=== PATIENT | male | born 1960 | race Caucasian/White ===

== ENCOUNTER → 2017-08-13 | Outpatient (CLI) | payer OTHER ==
[2017-08-13 09:54] LABS: ALT 32 U/L (21-72); AST 20 U/L (17-59); Albumin 4.2 g/dL (3.5-5.0); Alkaline Phosphatase 73 U/L (38-126); Anion Gap 10 mmol/L; Blood Urea Nitrogen 11 mg/dL (9-20); Carbon Dioxide 27 mmol/L (22-30); Chloride 100 mmol/L (98-107); Cholesterol 211 mg/dL (<200); Glucose 213 mg/dL (74-99); HDL Cholesterol 30 mg/dL (40-60); Potassium 4.6 mmol/L (3.5-5.1); Sodium 137 mmol/L (137-145); Total Bilirubin 0.8 mg/dL (0.2-1.3); Total Protein 6.8 g/dL (6.3-8.2); Triglycerides 433 mg/dL (<150)
[2017-08-13 10:24] LABS: PSA Annual Screen 0.32 ng/mL (0.00-4.00)
== END | disposition home or self-care (01) ==
LOC: LABWHC1 08:48
PROVIDERS: ATTEND Internal Medicine
DX: R07.9 Chest pain, unspecified (principal); R03.0 Elevated blood-pressure reading, without diagnosis of hypertension; Z12.5 Encounter for screening for malignant neoplasm of prostate; Z29.9 Encounter for prophylactic measures, unspecified; Z83.3 Family history of diabetes mellitus
CPT/HCPCS: 80061; 80053; 93005; 36415; G0103

== ENCOUNTER → 2017-09-12 | Outpatient (CLI) | payer OTHER ==
[2017-09-12 21:10] LABS: Hemoglobin A1C 8.5 % (4.0-6.0)
== END | disposition home or self-care (01) ==
LOC: LABWHC1 14:37
PROVIDERS: ATTEND Internal Medicine
DX: R73.9 Hyperglycemia, unspecified (principal); E78.5 Hyperlipidemia, unspecified
CPT/HCPCS: 36415; 82043; 82570; 83036; 84443

== ENCOUNTER 2017-09-25 05:42 | Emergency (ER) | payer OTHER ==
[2017-09-25 06:01] VITALS: BP 133/76; PULSE 58; RESP 18; TEMP 99.1
[2017-09-25] MEDS ORDERED: SODIUM CHLORIDE 0.9% 1,000 ML IV STA ×2 (08:16)
[2017-09-25] MEDS ORDERED: CLINDAMYCIN 600 MG in DEXTROSE 5% IN WATER 50 ML IVPB STA ×2 (08:17)
--- NOTE | 2017-09-25 08:18 | ED ---
ENT HPI - General Chief complaint: Dental/Oral Stated complaint: dental pain Time Seen by Provider: 09/25/17 07:48 Source: patient, RN notes reviewed, old records reviewed Mode of arrival: ambulatory Limitations: no limitations - History of Present Illness Initial comments: This patient's a 56-year-old male with a history of pain and swelling to the left side of his face for 2 days. He reports that he started to have some swelling yesterday he was seenbe started on amoxicillin. He's had one day of the antibiotic. He reports he woke up today with severe swelling extending from the cheek up to his eye. Patient reports that he has no mandibular swelling or difficulty with swallowing or breathing. Patient states that he has not seen a dentist in quite some time. He does have significant decay on all of his teeth. Patient reports that he has not seen a dentist. Patient states that he's had recent diagnosis of type 2 diabetes and hypertension, he starts his medications on Saturday. - Related Data Previous Rx's Medication Instructions Recorded Clindamycin [Cleocin] 450 mg PO TID 10 Days capsule 09/25/17 Allergies Allergy/AdvReac Type Severity Reaction Status Date / Time No Known Allergies Allergy Verified 09/25/17 06:00 Review of Systems ROS Statement: Those systems with pertinent positive or pertinent negative responses have been documented in the HPI. ROS Other: All systems not noted in ROS Statement are negative. Past Medical History Past Medical History: No Reported History History of Any Multi-Drug Resistant Organisms: None Reported Additional Past Surgical History / Comment(s): Neck surgery Past Psychological History: No Psychological Hx Reported Smoking Status: Current every day smoker Past Alcohol Use History: None Reported Past Drug Use History: None Reported General Exam - General Exam Comments Initial Comments: 6-year-old male. Alert and oriented. No acute distress. Limitations: no limitations General appearance: alert, in no apparent distress Head exam: Present: atraumatic, normocephalic, normal inspection Eye exam: Present: normal appearance, PERRL, EOMI. Absent: scleral icterus, conjunctival injection, periorbital swelling ENT exam: Present: mucous membranes moist, other (Patient has extensive swelling from the left cheek extending up to the lower eyelid. The area is warm to touch. No palpable abscess with no swelling at this time.). Absent: normal oropharynx ( has significant decay through entire teeth. Tooth #15 is somewhat tender to palpation, multiple dental caries noted.) Neck exam: Present: normal inspection. Absent: tenderness, meningismus, lymphadenopathy Respiratory exam: Present: normal lung sounds bilaterally. Absent: respiratory distress, wheezes, rales, rhonchi, stridor Cardiovascular Exam: Present: regular rate, normal rhythm, normal heart sounds. Absent: systolic murmur, diastolic murmur, rubs, gallop, clicks Extremities exam: Present: normal inspection, full ROM, normal capillary refill. Absent: tenderness, pedal edema, joint swelling, calf tenderness Back exam: Present: normal inspection Neurological exam: Present: alert, oriented X3, CN II-XII intact Psychiatric exam: Present: normal affect, normal mood Course Vital Signs 09/25/17 05:57 Temperature 99.1 F Pulse Rate 58 L Respiratory 18 Rate Blood Pressure 133/76 O2 Sat by Pulse 96 Oximetry Medical Decision Making - Medical Decision Making 56-year-old male presents emergency department today with chief complaint of left-sided facial swelling. Started 2 days ago. Started on amoxicillin for PCP. He reports a swelling feeling worse. He does have a low-grade temperature today 99.8. Patient has no pain with extra ocular movements. No trismus. No tenderness of the mandible or the soft tissue areas of the neck. Patient has extensive swelling from the left cheek extending to the lower left eyelid. Patient is a recent diagnosis of type II diabetic. Patient received IV fluids and lab work was obtained. White blood cell count within normal limits. CT of the facial bones was completed. No evidence of focal abscess at this time. Likely cellulitis at this time. I will change the Patient to clindamycin. Given referral for dental clinic. Discussed PCP follow-up and ENT follow-up. Return parameters were discussed. - Lab Data Result diagrams: 09/25/17 08:36 09/25/17 08:36 Lab Results 09/25/17 09/25/17 Range/Units 08:36 08:36 WBC 10.1 (3.8-10.6) k/uL RBC 4.73 (4.30-5.90) m/uL Hgb 15.8 (13.0-17.5) gm/dL Hct 45.5 (39.0-53.0) % MCV 96.2 (80.0-100.0) fL MCH 33.3 (25.0-35.0) pg MCHC 34.6 (31.0-37.0) g/dL RDW 13.1 (11.5-15.5) % Plt Count 136 L (150-450) k/uL Neutrophils % 78 % Lymphocytes % 13 % Monocytes % 7 % Eosinophils % 2 % Basophils % 0 % Neutrophils # 7.8 H (1.3-7.7) k/uL Lymphocytes # 1.3 (1.0-4.8) k/uL Monocytes # 0.7 (0-1.0) k/uL Eosinophils # 0.2 (0-0.7) k/uL Basophils # 0.0 (0-0.2) k/uL Sodium 136 L (137-145) mmol/L Potassium 4.2 (3.5-5.1) mmol/L Chloride 104 (98-107) mmol/L Carbon Dioxide 24 (22-30) mmol/L Anion Gap 8 mmol/L BUN 10 (9-20) mg/dL Creatinine 0.72 (0.66-1.25) mg/dL Est GFR (CKD-EPI)AfAm >90 (>60 ml/min/1.73 sqM) Est GFR (CKD-EPI)NonAf >90 (>60 ml/min/1.73 sqM) Glucose 170 H (74-99) mg/dL Calcium 8.7 (8.4-10.2) mg/dL Total Bilirubin 1.3 (0.2-1.3) mg/dL AST 20 (17-59) U/L ALT 30 (21-72) U/L Alkaline Phosphatase 70 (38-126) U/L Total Protein 6.6 (6.3-8.2) g/dL Albumin 4.0 (3.5-5.0) g/dL - Radiology Data Radiology results: report reviewed Acute fractures. Near-complete opacification of the left maxillary sinus. Mucosal thickening also present with prior ethmoidectomy region. Disposition Clinical Impression: Facial cellulitis, Dental infection Disposition: HOME SELF-CARE Condition: Good Instructions: Dental Caries (ED) Additional Instructions: Patient must take the antibiotic as prescribed. Follow-up with dental clinic and urinalysis and throat specialist. Return to the emergency department if any alarming signs or symptoms occur. [facility] [address] [place] [address] [phone] (existing clients only) For new clients: [phone] 1st consult: $50 (includes Xrays) Usually 30% less then private dentist for visits after. [employer] Have to pay $50 for Xrays anmd rest is covered. [phone] Prescriptions: Clindamycin [Cleocin] 450 mg PO TID 10 Days capsule Is patient prescribed a controlled substance at d/c from ED?: No Referrals: None,Stated [REFERRING] - 1-2 days Time of Disposition: 10:22
[2017-09-25] MEDS ORDERED: KETOROLAC 30 MG/ML 1 ML VIAL IVP STA (08:31)
[2017-09-25 08:46] LABS: Basophils % (A) 0 %; Eosinophils # (A) 0.2 k/uL (0-0.7); Eosinophils % (A) 2 %; HCT 45.5 % (39.0-53.0); HGB 15.8 gm/dL (13.0-17.5); Lymphocytes # (A) 1.3 k/uL (1.0-4.8); Lymphocytes % (A) 13 %; MCH 33.3 pg (25.0-35.0); MCHC 34.6 g/dL (31.0-37.0); MCV 96.2 fL (80.0-100.0); Mean Platelet Volume 8.8; Monocytes # (A) 0.7 k/uL (0-1.0); Monocytes % (A) 7 %; Neutrophils # (A) 7.8 k/uL (1.3-7.7); Neutrophils % (A) 78 %; Platelet Count 136 k/uL (150-450); RBC 4.73 m/uL (4.30-5.90); RDW 13.1 % (11.5-15.5); WBC 10.1 k/uL (3.8-10.6)
[2017-09-25 08:56] LABS: ALT 30 U/L (21-72); AST 20 U/L (17-59); Alkaline Phosphatase 70 U/L (38-126); Anion Gap 8 mmol/L; Blood Urea Nitrogen 10 mg/dL (9-20); Calcium 8.7 mg/dL (8.4-10.2); Carbon Dioxide 24 mmol/L (22-30); Chloride 104 mmol/L (98-107); Glucose 170 mg/dL (74-99); Potassium 4.2 mmol/L (3.5-5.1); Sodium 136 mmol/L (137-145); Total Bilirubin 1.3 mg/dL (0.2-1.3); Total Protein 6.6 g/dL (6.3-8.2)
--- NOTE | 2017-09-25 10:07 | CT ---
EXAMINATION TYPE: CT facial bones w con DATE OF EXAM: 09/25/2017 COMPARISON: None HISTORY: dental pain CT DLP: 685 mGycm CONTRAST: 100mL mL of Isovue 300 The paranasal sinuses are examined in the axial plane at 2 mm thick sections. Reconstructed images i n the coronal plane were obtained. There is dental amalgam scatter artifact There is opacification of the left maxillary sinus. Prior ethmoidectomy has been performed. Mucosal t hickenings within the residual ethmoid air cell regions. The sphenoid sinuses are clear. The frontal sinuses are clear. The septum is evaluated. Septum appears essentially midline. There are prior uncinectomies bilaterally. The ostiomeatal units are patent. Temporomandibular junctions appear within normal limits. Zygomatic arches are intact. Orbital floors are intact. Orbits appear intact. Nasal bones appear intact. Maxillary spine is normal. IMPRESSIONS: 1. No acute fractures. 2. Near-complete opacification of the left maxillary sinus. Mucosal thickening is also present within prior ethmoidectomy regions.
== END 2017-09-25 10:55 | disposition home or self-care (01) ==
LOC: EC 05:42
DX: L03.211 Cellulitis of face (principal); K04.7 Periapical abscess without sinus; F17.200 Nicotine dependence, unspecified, uncomplicated
CPT/HCPCS: 36415; 70487; 80053; 85025; 96361; 96374; 96375; 99284

== ENCOUNTER → 2018-02-17 | Outpatient (CLI) | payer OTHER ==
[2018-02-17 18:56] LABS: Anion Gap 6.4 mmol/L (4.00-12.00); Carbon Dioxide 28.6 mmol/L (21.6-31.8); Potassium 4.6 mmol/L (3.5-5.5)
[2018-02-17 22:32] LABS: Hemoglobin A1C 7.1 % (4.0-6.0)
== END | disposition home or self-care (01) ==
LOC: LABWHC1 13:56
PROVIDERS: ATTEND Internal Medicine
DX: E11.9 Type 2 diabetes mellitus without complications (principal)
CPT/HCPCS: 36415; 80048; 83036

== ENCOUNTER → 2019-03-25 | Outpatient (CLI) | payer OTHER ==
--- NOTE | 2019-03-25 20:01 | MR ---
EXAMINATION TYPE: MR cervical spine wo/w con DATE OF EXAM: 03/25/2019 COMPARISON: None HISTORY: Low Back Pain / Neck Pain, hx of cervical surgery CONTRAST: Performed utilizing 13 mL intravenous Gadavist gadolinium contrast. TECHNIQUE: Multiplanar multiecho imaging on a 3.0 [place] magnet is performed through the cervical spin e. FINDINGS: The craniovertebral junction is normal. Vertebral body alignment is normal. There is anter ior cervical fusion of C6-7. 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 C7-T1: No focal disc herniation or significant disc bulge is evident. No spinal canal stenosis or n eural foraminal stenosis is present. C6-7: Uncovertebral joint hypertrophy contributes to foraminal stenosis. No gross focal disc herniati on or significant disc bulge is evident.. C5-6: No focal disc herniation or significant disc bulge is evident. No spinal canal stenosis or carlito ral foraminal stenosis is present. C4-5: Disc bulging is present [id number] anterior thecal sac compression. This comes in close a pproximation to the spinal cord. C3-4: No focal disc herniation or significant disc bulge is evident. No spinal canal stenosis or carlito ral foraminal stenosis is present. C2-3: No focal disc herniation or significant disc bulge is evident. No spinal canal stenosis or carlito ral foraminal stenosis is present. IMPRESSIONS: 1. Disc bulging C4-C5 with mild to moderate intrathecal sac compression comes in close approximation with the spinal cord without cord deformity. 2. Postsurgical changes seen at C5-C7. Some uncovertebral joint hypertrophy at C6-7 disc contributing to bilateral foraminal stenosis
--- NOTE | 2019-03-25 20:33 | MR ---
EXAMINATION TYPE: MR lumbar spine wo con DATE OF EXAM: 03/25/2019 COMPARISON: None HISTORY: Low Back Pain / Neck Pain CONTRAST: 0 mL intravenous Gadavist. TECHNIQUE: Multiplanar, multisequence images of the lumbar spine were acquired. FINDINGS: L5-S1: There is a broad-based central bulge which has contact with the exiting left and right S1 nerv e roots. Disc extension inferiorly has mild epidural space impression. No thecal sac is evident. Face t hypertrophy is present. Mild foraminal narrowing is present greater on the right. L4-L5: Left paracentral disc bulge is present with ibed-kb-fvvflieo anterior thecal sac impression. T his is contributing to severe left foraminal stenosis. Facet hypertrophy and ligamentum flavum laxity is present. L3-L4: Central disc subligamentous herniation is present. Facet hypertrophy and ligamentum flavum lax ity is present on the right. No AP spinal canal stenosis is present. Moderate right and mild left for aminal stenosis is present. L2-L3: There is a large right paracentral disc herniation with moderate anterior thecal sac compressi on. No AP spinal canal stenosis is present. Mild right foraminal narrowing is present. L1-L2: Broad-based disc bulge is present with intrathecal sac flattening. No AP spinal canal stenosis is present. Facet hypertrophy is present. T12-L1: No significant disc bulge or disc herniation. No spinal canal stenosis. No foraminal stenos is. . IMPRESSION: 1. Moderate to large right paracentral disc herniation L2-L3. Correlate with right radicular symptoms . 2. Left paracentral disc bulging with eojz-rx-ftzgzuek anterior thecal sac impression and severe left foraminal stenosis at L4-5. Correlate with left L5 radicular symptoms. 3. Disc bulging with central disc herniation L5-S1 and L3-4. 3. Foraminal narrowing discussed above
== END | disposition home or self-care (01) ==
LOC: RADMRIMAIN 14:18
PROVIDERS: ATTEND Orthopaedic Surgery Orthopaedic Surgery of the Spine
DX: M48.02 Spinal stenosis, cervical region (principal); M50.221 Other cervical disc displacement at C4-C5 level; M48.061 Spinal stenosis, lumbar region without neurogenic claudication; M51.27 Other intervertebral disc displacement, lumbosacral region; M51.26 Other intervertebral disc displacement, lumbar region; Z98.1 Arthrodesis status
CPT/HCPCS: 72148; 72156; A9585

== ENCOUNTER → 2020-07-14 | Day surgery (SDC) | payer OTHER ==
[2020-07-12 11:07] VITALS: BMI 34.7
[~2020-07-14] MED LIST: ALPRAZolam 0.25 MG TAB PO PRN; ALPRAZolam 0.5 MG TAB PO PRN; ASPIRIN 325 MG TAB PO STA; ASPIRIN 81 MG PO SCH; ATORVASTATIN 40 MG TAB PO SCH; ATORVASTATIN 80 MG TAB PO STA; HEPARIN SODIUM 1,000 UN/ML (10ML VL) ONE; IOPAMIDOL-370 125ML BTL INJ ONE; ISOSORBIDE MONONITRATE ER 30 MG TAB.ER.24H PO SCH; LIDOCAINE 1% INJ 10MG/ML (20 ML MDV) ONE; LIDOCAINE 1% INJ 10MG/ML (20 ML MDV) SQ ONE; METOPROLOL SUCCINATE (ER) 25 MG TAB.ER.24H PO SCH; NITROGLYCERIN SL TABS 0.4 MG TAB SUBLINGUAL PRN; RX INFO: IV CONTRAST WAS GIVEN 1 EACH MISC MISCELLANE PRN; SODIUM CHLORIDE 0.9% 1,000 ML IV SCH; SODIUM CHLORIDE 0.9% 1,000 ML in EMPTY BAG 1 BAG IV ONE; VERAPAMIL 2.5 MG/ML 2 ML AMP ONE; VERAPAMIL SYRINGE (5 MG/10 ML) INTRAARTER ONE; fentaNYL (PF) 50 MCG/ML 2 ML AMP IV ONE; fentaNYL (PF) 50 MCG/ML 2 ML AMP ONE
[2020-07-14 09:25] VITALS: TEMP 98.9
[2020-07-14] MEDS: BENZOCAINE SPRAY 1 CAN MUCOUS MEM ONE ×2 (10:11→10:32)
[2020-07-14] MEDS: MIDAZOLAM 2 MG/2 ML VIAL IV ONE ×4 (10:12→10:36)
[2020-07-14 11:50] VITALS: RESP 16
--- NOTE | 2020-07-14 12:31 | ECHOT ---
TRANSESOPHAGEAL ECHOCARDIOGRAM PROCEDURE PERFORMED: Transesophageal echocardiogram. INDICATION: Evaluation of aortic valve. CLINICAL INFORMATION: After explaining the procedure to the patient its risks and the complications, blood pressure, heart rate, O2 saturation was monitored. The throat was sprayed with Cetacaine. He received 4 mg intravenous Versed, 50 mcg intravenous fentanyl. The probe was introduced in the esophagus without difficulties. Images were obtained and following that the probe was removed. There was no immediate complication. FINDINGS: Left atrial size is normal. Left atrial appendage are normal. Size and systolic function normal. The aortic valve revealed fibrocalcific changes of the aortic cusp with preserved opening. Mitral valve appears to be normal. Tricuspid valve is normal. Descending thoracic aorta is normal. No pericardial effusion was noted. Contrast bubble study revealed a yvtbk-wq-jbcj shunting through a patent foramen ovale. Doppler pulse wave and color Doppler obtained revealed mild to moderate mitral and tricuspid regurgitation with mild aortic regurgitation. There was evidence of patent foramen ovale. CONCLUSION: 1. Normal left ventricular size and systolic function. 2. Fibrocalcific change of the aortic cusp with mild aortic regurgitation. 3. Mild to moderate mitral and tricuspid regurgitation. 4. Patent foramen ovale with eppkh-fs-bmae shunting. 5. No pericardial effusion. 6. Normal appearance of the descending thoracic aorta. MMODL / IJN: [id number] /
[2020-07-14 13:11] VITALS: PULSE 56
[2020-07-14 13:13] VITALS: BP 116/75
--- NOTE | 2020-07-14 16:50 | CC ---
CARDIAC CATHETERIZATION REPORT Darshan Martinez is a 59-year-old male known history of hypertension, hyperlipidemia, diabetes mellitus, who has not been treated in the past, chronic tobacco use, who presented with symptoms of chest discomfort and arm discomfort of recent onset. In view of that, recommendation was made regarding cardiac catheterization. The procedure as well as the risks and the complications were discussed with the patient who is in full understanding and agreement. 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 Using Xylocaine anesthesia and Seldinger technique, a 6-Senegalese sheath was introduced in the right radial artery. Selective right and left coronary angiography performed using 5-Senegalese 3.5 bend right and left Tirso catheter. Multiple views of the coronary artery including hemiaxial views were obtained. Following that, 5-[place]egalese tight pigtail catheter was introduced into the left ventricle and a 30-degree POPE view of the left ventricle was obtained. Following that, catheter and sheath were removed. Hemostasis was obtained with deployment of a TR band. There was no immediate complication. Patient is returned to his room in stable condition. Of note, the patient received a total of 5000 units of intravenous heparin as well as intra-arterial verapamil. FINDINGS: LEFT MAIN: This is a large-sized vessel, bifurcating into left circumflex, left anterior descending coronary artery, left main coronary artery has no evidence of high- grade stenosis. LEFT ANTERIOR DESCENDING ARTERY. This is a large-sized vessel reaching to the apex with a wraparound apex segment giving rise to a moderately sized diagonal branch in mid segment. The left anterior descending artery after the takeoff of the first septal shipping checker has diffuse intimal disease of 30-40 percent. LEFT CIRCUMFLEX: This is a nondominant vessel giving rise to a large obtuse marginal branch. The left circumflex throughout its course involving the obtuse marginal branch has diffuse intimal disease up to 40-50 percent without any evidence of critical stenosis. RIGHT CORONARY ARTERY: This vessel is totally occluded proximally with no significant antegrade flow. COLLATERALS: There are collateral from the left coronary system toward the right PDA and PLV. There is a big gap involving all the mid and distal right coronary artery. LEFT VENTRICULOGRAM: Left ventriculogram was performed in the 30 degree POPE view and revealed normal left ventricular size and systolic function. Ejection fraction is 50% to 55%. There was no significant mitral regurgitation. HEMODYNAMICS: There was no gradient across the aortic valve. The left ventricular end-diastolic pressure was 16-18 mmHg. CONCLUSION: 1. Chronically occluded right coronary artery with collaterals from the left system and a long gap. 2. Moderate disease in the LAD and the left circumflex. 3. Normal left ventricular size and systolic function. RECOMMENDATIONS: In view of findings and anatomy, I would recommend to maximize his medical therapy. If he has persistent symptoms, be evaluated to undergo revascularization of his chronic totally occluded right coronary artery. Those findings and recommendations were discussed with the patient and he is in full understanding and agreement. Duration of sedation is 17 minutes. MMODL / IJN: [id number] /
--- NOTE | 2020-07-14 16:50 | LTR ---
DATE OF SERVICE: 07/14/[address] Prabhakar: I had the pleasure of performing cardiac catheterization on Mr. Martinez at [facility] on July 14. A full copy of procedure note will be forwarded to you. In brief, he was found to have a chronically occluded right coronary artery with moderate disease in the LAD and the left circumflex. At this time, I will maximize his medical therapy and if he has persistent symptoms, then I would recommend proceeding with high risk angioplasty of the chronically occluded right coronary artery. I will keep you updated on his progress. Thank you again for allowing me to participate in his care. Please feel free to call for any questions. Sincerely, FAUSTINA / FACUNDON: [id number] /
== END | disposition home or self-care (01) ==
LOC: CATHCVL 08:52
PROVIDERS: ATTEND Internal Medicine Interventional Cardiology
DX: I25.110 Atherosclerotic heart disease of native coronary artery with unstable angina pectoris (principal); I08.3 Combined rheumatic disorders of mitral, aortic and tricuspid valves; I25.82 Chronic total occlusion of coronary artery; I10 Essential (primary) hypertension; Z20.822 Contact with and (suspected) exposure to COVID-19; E11.9 Type 2 diabetes mellitus without complications; E78.2 Mixed hyperlipidemia; Z98.1 Arthrodesis status; Z87.891 Personal history of nicotine dependence; Z98.890 Other specified postprocedural states; M19.90 Unspecified osteoarthritis, unspecified site; Z79.82 Long term (current) use of aspirin; Z79.899 Other long term (current) drug therapy
CPT/HCPCS: 93312; 93320; 93325; 93458; 87635; C1894; C1769; J2250; J2001; J3010; J1644; Q9967

== ENCOUNTER → 2020-08-12 | Outpatient (CLI) | payer OTHER ==
[2020-08-12 20:19] LABS: HCT 44.5 % (39.6-50.0); HGB 14.7 g/dL (13.0-17.0); MCH 33.1 pg (27.0-32.0); MCV 100.2 fL (80.0-97.0); Mean Platelet Volume 12.9 fL (9.5-12.2); Platelet Count 149 X 10*3/uL (140-440); RBC 4.44 X 10*6/uL (4.40-5.60); RDW 12.9 % (11.5-14.5); WBC 8.07 X 10*3/uL (4.50-10.00)
[2020-08-12 20:35] LABS: INR 0.98 (0.90-1.11); Prothrombin Time 10.7 sec (9.9-11.9)
[2020-08-12 21:11] LABS: African American GFR (CKD) 95.7 (60.0-200.0); Anion Gap 6.4 mmol/L (4.00-12.00); Calcium 8.7 mg/dL (8.7-10.3); Carbon Dioxide 27.6 mmol/L (21.6-31.8); Magnesium 1.7 mg/dL (1.5-2.4); Non-African American GFR(CKD) 82.6 (60.0-200.0); Potassium 4.4 mmol/L (3.5-5.5)
== END | disposition home or self-care (01) ==
LOC: LABWHC1 14:27
PROVIDERS: ATTEND Internal Medicine Interventional Cardiology
DX: I25.118 Atherosclerotic heart disease of native coronary artery with other forms of angina pectoris (principal); I25.82 Chronic total occlusion of coronary artery
CPT/HCPCS: 36415; 80048; 83735; 85027; 85610

== ENCOUNTER 2020-11-16 22:53 | Inpatient (IN) | payer OTHER ==
--- NOTE | 2020-11-16 23:11 | ED ---
Chest Pain HPI - General Chief Complaint: Chest Pain Stated Complaint: Chest Pain Time Seen by Provider: 11/16/20 23:02 Source: patient, RN notes reviewed, old records reviewed Mode of arrival: ambulatory Limitations: no limitations - History of Present Illness Initial Comments: This is a 59-year-old male to the ER today. Patient presents today for isi luation regards to. Patient does have a strong history of coronary artery disease with recent stent placement 3 stents placed. Patient has chest pain just like that we needed stents placed. Although is improved now with nitro. Otherwise patient has no recent travel history sick contacts no fever cough or congestion. No travel history MD Complaint: chest pain -: days(s) Onset: during rest, during exertion Pain Location: substernal Pain Radiation: LUE Severity: moderate Severity scale (1-10): 4 Quality: aching, heaviness Consistency: constant Improves With: nitroglycerin Worsens With: nothing Context: recent surgery Anginal Symptoms: sense of impending doom Other Symptoms: palpitations Treatments Prior to Arrival: none - Related Data Home Medications Medication Instructions Recorded Confirmed Aspirin [[place] Aspirin EC] 81 mg PO DAILY 07/12/20 11/16/20 Clopidogrel [Plavix] 75 mg PO DAILY 11/16/20 11/16/20 Glimepiride [Amaryl] 2 mg PO BID 11/16/20 11/16/20 Nitroglycerin Sl Tabs [Nitrostat] 0.4 mg SUBLINGUAL Q5M PRN 11/16/20 11/16/20 buPROPion XL [Wellbutrin XL] 150 mg PO DAILY 11/16/20 11/16/20 Allergies Allergy/AdvReac Type Severity Reaction Status Date / Time No Known Allergies Allergy Verified 11/16/20 23:00 Review of Systems ROS Statement: Those systems with pertinent positive or pertinent negative responses have been documented in the HPI. ROS Other: All systems not noted in ROS Statement are negative. EKG Findings - EKG Comments: EKG Findings:: EKG shows sinus bradycardia 57 TX 214 QRS 102 QTC 432 Past Medical History Past Medical History: Chest Pain / Angina, Diabetes Mellitus, Hyperlipidemia, Hypertension Additional Past Medical History / Comment(s): NEW DX OF DIABETES. RECENT CHEST PAIN AND NUMBNESS OF LEFT ARM History of Any Multi-Drug Resistant Organisms: None Reported Past Surgical History: Back Surgery, Hernia Repair, Orthopedic Surgery Additional Past Surgical History / Comment(s): Neck surgery X2. BACK FUSION. HERNIA X 2 Past Anesthesia/Blood Transfusion Reactions: No Reported Reaction Past Psychological History: No Psychological Hx Reported Smoking Status: Current every day smoker Past Alcohol Use History: None Reported Past Drug Use History: None Reported - Past Family History Mother Family Medical History: No Reported History General Exam Limitations: no limitations General appearance: anxious Head exam: Present: atraumatic, normocephalic, normal inspection Eye exam: Present: normal appearance, PERRL, EOMI. Absent: scleral icterus, conjunctival injection, periorbital swelling ENT exam: Present: normal exam, mucous membranes moist Neck exam: Present: normal inspection. Absent: tenderness, meningismus, lymphadenopathy Respiratory exam: Present: normal lung sounds bilaterally. Absent: respiratory distress, wheezes, rales, rhonchi, stridor Cardiovascular Exam: Present: regular rate, normal rhythm, normal heart sounds. Absent: systolic murmur, diastolic murmur, rubs, gallop, clicks GI/Abdominal exam: Present: soft, normal bowel sounds. Absent: distended, tenderness, guarding, rebound, rigid Extremities exam: Present: normal inspection, full ROM, normal capillary refill. Absent: tenderness, pedal edema, joint swelling, calf tenderness Back exam: Present: normal inspection Neurological exam: Present: alert, oriented X3, CN II-XII intact Psychiatric exam: Present: normal affect, normal mood Skin exam: Present: warm, dry, intact, normal color. Absent: rash Course Vital Signs 11/16/20 11/17/20 22:56 00:00 Temperature 98.4 F Pulse Rate 54 L 54 L Respiratory 22 20 Rate Blood Pressure 179/78 154/111 O2 Sat by Pulse 97 95 Oximetry - Reevaluation(s) Reevaluation #1: 11/17/20 00:02 Medical record is reviewed Reevaluation #2: 11/17/20 01:31 EKG performed with no progression Reevaluation #3: 11/17/20 01:31 Patient's troponin is elevated, we started on anticoagulation Reevaluation #4: 11/17/20 01:31 Spoke with patient at length regarding findings here in the ER need for admission despite misgivings patient will be admitted to the [facility] 51 male to the emergency department for evaluation patient presents today for evaluation of chest pain just a prior [place]. Recent stent placement within the last 4 months. Patient will be admitted for cardiac evaluation and treatment Critical Care Time Critical Care Time: Yes Total Critical Care Time: 31 Disposition Clinical Impression: Chest pain, Acute non-ST elevation myocardial infarction (NSTEMI), Unstable angina pectoris Disposition: ADMITTED IP TO THIS HOSP Condition: Fair Referrals: Shaun Prabhakar MD [Primary Care Provider] - 1-2 days
[2020-11-16 23:35] LABS: Basophils # (A) 0.1 k/uL (0-0.2); Basophils % (A) 1 %; Eosinophils # (A) 0.2 k/uL (0-0.7); Eosinophils % (A) 2 %; HCT 47.5 % (39.0-53.0); HGB 16.3 gm/dL (13.0-17.5); Lymphocytes # (A) 1.7 k/uL (1.0-4.8); Lymphocytes % (A) 21 %; MCH 34.1 pg (25.0-35.0); MCHC 34.4 g/dL (31.0-37.0); MCV 99.2 fL (80.0-100.0); Mean Platelet Volume 9.4; Monocytes # (A) 0.5 k/uL (0-1.0); Monocytes % (A) 6 %; Neutrophils # (A) 5.5 k/uL (1.3-7.7); Neutrophils % (A) 69 %; Platelet Count 151 k/uL (150-450); RBC 4.79 m/uL (4.30-5.90); RDW 13.5 % (11.5-15.5)
[2020-11-16 23:56] LABS: ALT 19 U/L (4-49); AST 24 U/L (17-59); African American GFR (CKD) >90 (>60 ml/min/1.73 sqM); Albumin 4.1 g/dL (3.5-5.0); Alkaline Phosphatase 76 U/L (38-126); Anion Gap 9 mmol/L; Blood Urea Nitrogen 11 mg/dL (9-20); Calcium 9.1 mg/dL (8.4-10.2); Carbon Dioxide 23 mmol/L (22-30); Chloride 101 mmol/L (98-107); Glucose 272 mg/dL (74-99); Lipase 118 U/L (23-300); Magnesium 1.9 mg/dL (1.6-2.3); Non-African American GFR(CKD) >90 (>60 ml/min/1.73 sqM); Sodium 133 mmol/L (137-145); Total Bilirubin 0.6 mg/dL (0.2-1.3); Total Protein 6.9 g/dL (6.3-8.2)
--- NOTE | 2020-11-16 23:58 | XR ---
EXAMINATION TYPE: XR chest 2V DATE OF EXAM: 11/16/2020 COMPARISON: 07/27/2011 HISTORY: Chest pain TECHNIQUE: 2 views FINDINGS: Heart and mediastinum are normal. Lungs are clear. Diaphragm is normal. Bony thorax appears normal. IMPRESSION: Normal chest. No change.
[2020-11-17 00:03] LABS: INR 0.9 (<1.2); Partial Thromboplastin Time 24.3 sec (22.0-30.0); Prothrombin Time 10.1 sec (9.0-12.0)
[2020-11-17 00:08] LABS: Potassium 4.4 mmol/L (3.5-5.1)
[2020-11-17] MEDS ORDERED: NITROGLYCERIN SL TABS 0.4 MG TAB SUBLINGUAL PRN ×2 (01:12→11:53)
[2020-11-17] MEDS ORDERED: ASPIRIN 81 MG PO STA (01:12)
[2020-11-17] MEDS ORDERED: HEPARIN SODIUM 1,000 UN/ML (10ML VL) IV ONE ×3 (01:12→11:02)
[2020-11-17] MEDS ORDERED: MORPHINE SULFATE 4 MG/ML SYRINGE IV PRN (01:12)
[2020-11-17] MEDS ORDERED: HEPARIN SOD,PORK IN 0.45% NACL 25,000 UNIT in 0.45% NACL 1 250ML.BAG IV SCH (01:15)
[2020-11-17] MEDS: SODIUM CHLORIDE 0.9% 1,000 ML IV SCH (04:48)
[2020-11-17 06:00] LABS: Glucose,Whole Blood 188 mg/dL (75-99)
[2020-11-17] MEDS ORDERED: HEPARIN SODIUM 1,000 UN/ML (10ML VL) IV PRN (07:59)
[2020-11-17] MEDS ORDERED: ALPRAZolam 0.5 MG TAB PO PRN (08:06)
[2020-11-17] MEDS ORDERED: ALPRAZolam 0.25 MG TAB PO PRN (08:06)
[2020-11-17] MEDS: FAMOTIDINE 20 MG/2 ML VIAL IV SCH ×2 (08:15→20:13)
[2020-11-17] MEDS: ATORVASTATIN 80 MG TAB PO SCH (08:15)
[2020-11-17] MEDS: METOPROLOL SUCCINATE (ER) 25 MG TAB.ER.24H PO SCH (08:15)
--- NOTE | 2020-11-17 08:42 | P.CRDCN ---
History of Present Illness History of present illness: HISTORY OF PRESENTING ILLNESS This is a pleasant 59-year-old male past medical history significant for hypertension, hyperlipidemia, type 2 diabetes, coronary artery disease previous PCI to RCA at [facility], chronically occluded RCA, chronic nicotine dependence. He follows in the office with Dr. Faria. We have been asked to see in consultation for chest pain. His chest pain started last night, he was sitting at the table. His pain started on the left side of his chest. Describes it as a pressure. He had associated diaphoresis, shortness of breath and nausea. He states his pain is non- exertional. Some radiation to his left shoulder. Nitroglycerin did help improve his pain. He is currently still having some mild left sided chest pressure. He denies history of UT or Stroke. He currently smokes 1PPD, denies alcohol or illicit drug use. He states he is compliant with his medications at home. DIAGNOSTICS EKG reveals sinus mechanism first degree AV block, mild st depressions in inferior and V5 and V6 Last Cardiac Catheterization July 2020 reveals chronically 100% occluded RCA, 40% stenosis mid LAD and moderate disease of the left circumflex, normal left ventricular systolic function MEHUL July 2020- normal ejection fraction, mild to moderate mitral regurgitation, mild aortic regurgitation, mild to moderate tricuspid regurgitation, for probable calcific change of the aortic cusp, PFO with [id number] shunt Low-level treadmill exercise stress test 09/22/2020- fair exercise capacity, no dysrhythmias noted, not diagnostic secondary to inadequate chronotropic response Chest xray no acute cardiopulmonary process Laboratory reviewed, CBC unremarkable, troponin 0.04, 1.2, 5.4. sodium 133, potassium 4.4, BUN 11, serum creatinine 0.7, magnesium 1.9, COVID-19 PCR negative, proBNP 27 Current home cardiac medications include when necessary nitroglycerin, Plavix 75 mg daily, aspirin 81 mg daily, atorvastatin 40mg daily. REVIEW OF SYSTEMS At the time of my exam: CONSTITUTIONAL: Denies fever or chills. CARDIOVASCULAR: Denies chest pain, shortness of breath, orthopnea, PND or palpitations. RESPIRATORY: Denies cough. GASTROINTESTINAL: Denies abdominal pain, diarrhea, constipation, nausea or vomiting. MUSCULOSKELETAL: Denies myalgias. NEUROLOGIC: Denies numbness, tingling, headacbe or weakness. ENDOCRINE: Denies fatigue, weight change, polydipsia or polyurina. GENITOURINARY: Denies burning, hematuria or urgency with micturation. HEMATOLOGIC: Denies history of anemia or bleeding. PHYSICAL EXAMINATION Blood pressure 150/88, heart rate 59, afebrile, maintaining oxygen saturations on 2 L nasal cannula CONSTITUTIONAL: No apparent distress. HEENT: Head is normocephalic. Pupils are equal, round. Sclerae anicteric. Mucous membranes of the mouth are moist. No JVD. No carotid bruit. CHEST EXAMINATION: Lungs are clear to auscultation. No chest wall tenderness is noted on palpation or with deep breathing. HEART EXAMINATION: Regular rate and rhythm. S1, S2 heard. No murmurs, gallops or rub. ABDOMEN: Soft, nontender. Positive bowel sounds. EXTREMITIES: 2+ peripheral pulses, no lower extremity edema and no calf tenderness. SKIN: warm dry NEUROLOGIC EXAMINATION: Patient is awake, alert and oriented x3. ASSESSMENT NSTEMI Hypertension Hyperlipidemia Type 2 diabetes Coronary artery disease- PCI RCA at [facility], chronically occluded RCA, moderate disease in left circumflex and LAD on cath in July 2020 Chronic nicotine dependence PLAN -Obtain 2D echocardiogram and doppler study to assess cardiac structure and function. -We are recommending cardiac catheterization at this time. Patient is agreeable. Plan for cardiac catheterization with Dr. Faria. -I have discussed the risks, benefits and alternative therapies for the above- mentioned procedure and for both sedation/analgesia as well as necessary blood product administration, if indicated, as they pertain to this patient. The patient has indicated understanding and acceptance of the risks and procedures discussed. Questions have been answered appropriately and he is agreeable to move forward with the above-stated procedure. -Smoking cessation discussed and highly recommended. -Further recommendations based on clinical course Nurse Practitioner note has been reviewed, I agree with a documented findings and plan of care. Patient was seen and examined. Past Medical History Past Medical History: Chest Pain / Angina, Diabetes Mellitus, Hyperlipidemia, Hypertension Additional Past Medical History / Comment(s): NEW DX OF DIABETES. RECENT CHEST PAIN AND NUMBNESS OF LEFT ARM History of Any Multi-Drug Resistant Organisms: None Reported Past Surgical History: Back Surgery, Heart Catheterization, Heart Catheterization With Stent, Hernia Repair, Orthopedic Surgery Additional Past Surgical History / Comment(s): Neck surgery X2. BACK FUSION. HERNIA X 2 Past Anesthesia/Blood Transfusion Reactions: No Reported Reaction Date of Last Stent Placement:: 08/17/20 Past Psychological History: No Psychological Hx Reported Smoking Status: Current every day smoker Past Alcohol Use History: None Reported Additional Past Alcohol Use History / Comment(s): SMOKES 1 PPD SINCE AGE 17 Past Drug Use History: None Reported - Past Family History Mother Family Medical History: No Reported History Medications and Allergies Home Medications Medication Instructions Recorded Confirmed Type Aspirin [Hendrix Aspirin EC] 81 mg PO DAILY 07/12/20 11/16/20 History Clopidogrel [Plavix] 75 mg PO DAILY 11/16/20 11/16/20 History Glimepiride [Amaryl] 2 mg PO BID 11/16/20 11/16/20 History Nitroglycerin Sl Tabs [Nitrostat] 0.4 mg SUBLINGUAL Q5M PRN 11/16/20 11/16/20 H istory buPROPion XL [Wellbutrin XL] 150 mg PO DAILY 11/16/20 11/16/20 History Atorvastatin [Lipitor] 40 mg PO DAILY 11/17/20 11/17/20 History Metoprolol Succinate (ER) [Toprol 25 mg PO DAILY 11/17/20 11/17/20 History Xl] Allergies Allergy/AdvReac Type Severity Reaction Status Date / Time No Known Allergies Allergy Verified 11/16/20 23:00 Physical Exam Vitals: Vital Signs Temp Pulse Pulse Resp BP BP Pulse Ox 11/17/20 04:00 97.7 F 59 L 20 150/88 98 11/17/20 02:50 98.4 F 62 18 179/87 95 11/17/20 02:17 47 L 18 143/90 95 11/17/20 01:46 48 L 18 158/90 95 11/17/20 00:00 54 L 20 154/111 95 11/16/20 22:56 98.4 F 54 L 22 179/78 97 Intake and Output 11/16/20 11/17/20 11/17/20 22:59 06:59 14:59 Output Total 0 Balance 0 Output: Urine 0 Stool 0 Other: # Voids 0 Weight 124.738 kg 124.738 kg Results 11/16/20 23:09 11/16/20 23:27 Cardiac Enzymes 11/16/20 11/16/20 11/17/20 Range/Units 23:27 23:27 02:41 AST 24 (17-59) U/L Troponin I 0.046 H* 1.290 H* (0.000-0.034) ng/mL Coagulation 11/16/20 11/17/20 Range/Units 23:27 06:20 PT 10.1 (9.0-12.0) sec APTT 24.3 32.6 H (22.0-30.0) sec CBC 11/16/20 Range/Units 23:09 WBC 8.0 (3.8-10.6) k/uL RBC 4.79 (4.30-5.90) m/uL Hgb 16.3 (13.0-17.5) gm/dL Hct 47.5 (39.0-53.0) % Plt Count 151 (150-450) k/uL Comprehensive Metabolic Panel 11/16/20 Range/Units 23:27 Sodium 133 L (137-145) mmol/L Potassium 4.4 (3.5-5.1) mmol/L Chloride 101 (98-107) mmol/L Carbon Dioxide 23 (22-30) mmol/L BUN 11 (9-20) mg/dL Creatinine 0.71 (0.66-1.25) mg/dL Glucose 272 H (74-99) mg/dL Calcium 9.1 (8.4-10.2) mg/dL AST 24 (17-59) U/L ALT 19 (4-49) U/L Alkaline Phosphatase 76 (38-126) U/L Total Protein 6.9 (6.3-8.2) g/dL Albumin 4.1 (3.5-5.0) g/dL Current Medications Generic Name Dose Route Start Last Admin Trade Name Freq PRN Reason Stop Dose Admin Aspirin 325 mg 11/18/20 09:00 Aspirin 325 Mg Tab PO DAILY PUNEET Atorvastatin Calcium 80 mg 11/17/20 09:00 Atorvastatin 80 Mg Tab PO DAILY PUNEET Sodium Chloride 1,000 mls @ 20 mls/hr 11/17/20 01:15 11/17/20 04:48 Saline 0.9% IV 20 mls/hr .Q24H PUNEET Administration Heparin Sodium/Sodium Chloride 250 mls @ 10 mls/hr 11/17/20 01:15 11/17/20 01:48 25,000 unit/ Sodium Chloride IV 8.0168 units/kg/hr .Q24H PUNEET 10 mls/hr Administration Protocol 8.0168 UNITS/KG/HR Morphine Sulfate 4 mg 11/17/20 01:12 11/17/20 02:02 Morphine Sulfate 4 Mg/Ml Syringe IV 4 mg Q4HR PRN Administration Chest Pain Nitroglycerin 0.4 mg 11/17/20 01:12 Nitroglycerin Sl Tabs 0.4 Mg Tab SUBLINGUAL Q5M PRN Chest Pain Intake and Output 11/16/20 11/17/20 11/17/20 22:59 06:59 14:59 Output Total 0 Balance 0 Output: Urine 0 Stool 0 Other: # Voids 0 Weight 124.738 kg 124.738 kg 11/16/20 23:09 11/16/20 23:27
[2020-11-17] MEDS: SODIUM CHLORIDE 0.9% 1,000 ML in EMPTY BAG 1 BAG IV SCH ×2 (09:25→16:42)
[2020-11-17] MEDS ORDERED: HEPARIN SODIUM 1,000 UN/ML (10ML VL) ONE (10:04)
[2020-11-17] MEDS ORDERED: fentaNYL (PF) 50 MCG/ML 2 ML AMP ONE (10:05)
[2020-11-17] MEDS ORDERED: LIDOCAINE 1% INJ 10MG/ML (20 ML MDV) ONE (10:05)
[2020-11-17] MEDS ORDERED: VERAPAMIL 2.5 MG/ML 2 ML AMP ONE (10:05)
[2020-11-17] MEDS ORDERED: IV FLUID CONTINUATION 1,000 ML IV ONE (10:25)
[2020-11-17] MEDS ORDERED: fentaNYL (PF) 50 MCG/ML 2 ML AMP IV ONE (10:39)
[2020-11-17] MEDS ORDERED: LIDOCAINE 1% INJ 10MG/ML (20 ML MDV) SQ ONE (10:43)
[2020-11-17] MEDS: MIDAZOLAM 2 MG/2 ML VIAL IV ONE ×2 (10:45→10:48)
[2020-11-17] MEDS ORDERED: VERAPAMIL SYRINGE (5 MG/10 ML) INTRAARTER ONE (10:48)
[2020-11-17] MEDS ORDERED: IOPAMIDOL-370 125ML BTL INJ ONE (11:13)
[2020-11-17] MEDS ORDERED: CLOPIDOGREL 75 MG TAB ONE (11:24)
[2020-11-17] MEDS ORDERED: CLOPIDOGREL 75 MG TAB PO ONE (11:29)
[2020-11-17] MEDS ORDERED: IOPAMIDOL-370 100ML BTL INJ ONE (11:31)
[2020-11-17] MEDS ORDERED: ATROPINE SULFATE 0.1 MG/ML 10ML SYRINGE IV PRN (11:53)
[2020-11-17] MEDS ORDERED: MAG HYDROX/AL HYDROX/SIMETH 30 ML CUP PO PRN (11:53)
[2020-11-17] MEDS ORDERED: ZOLPIDEM 5 MG TAB PO PRN (11:53)
[2020-11-17] MEDS ORDERED: RX INFO: IV CONTRAST WAS GIVEN 1 EACH MISC MISCELLANE PRN (11:53)
[2020-11-17] MEDS ORDERED: SODIUM CHLORIDE 0.9% 1,000 ML IV SCH (12:00)
[2020-11-17 12:07] LABS: Glucose,Whole Blood 166 mg/dL (75-99)
--- NOTE | 2020-11-17 12:10 | P.HPIM ---
History of Present Illness This is a pleasant 59 years old male with past medical history of Diabetes Mellitus, Hyperlipidemia, Hypertension Patient presents because of chest pain started 9:30 in the morning, pain is moderate, anterior with no dyspnea or coughing. No GI or urinary symptoms Patient smokes about 1 pack per day he was counseled to quit but he declines nicotine patch. No alcohol or illicit drugs. Patient has 3 stents before and he is on Plavix already Vital signs stable. He is slightly bradycardic in the 40s and 50s CBC, INR, BMP and liver enzymes are unremarkable. Troponin is elevated at 0.04, 1.2 and 5.4. ProBNP is 97 Coronal brow not detected, lipase is normal Chest x-ray: No acute process. EKG shows sinus bradycardia with first-degree AV block, at [address]-T changes and QTC 433 Emergency room he was started on aspirin and heparin drip Review of Systems CONSTITUTIONAL: No fever, no malaise, no fatigue. HEENT: No recent visual problems or hearing problems. Denied any sore throat. CARDIOVASCULAR: No orthopnea, PND, no palpitations, no syncope. PULMONARY: No shortness of breath, no cough, no hemoptysis. GASTROINTESTINAL: No diarrhea, no nausea, no vomiting, no abdominal pain. Normoactive bowel sounds. NEUROLOGICAL: No headaches, no weakness, no numbness. HEMATOLOGICAL: Denies any bleeding or petechiae. GENITOURINARY: Denies any burning micturition, frequency, or urgency. MUSCULOSKELETAL/RHEUMATOLOGICAL: Denies any joint pain, swelling, or any muscle pain. ENDOCRINE: Denies any polyuria or polydipsia. Past Medical History Past Medical History: Chest Pain / Angina, Diabetes Mellitus, Hyperlipidemia, Hypertension Additional Past Medical History / Comment(s): NEW DX OF DIABETES. RECENT CHEST PAIN AND NUMBNESS OF LEFT ARM History of Any Multi-Drug Resistant Organisms: None Reported Past Surgical History: Back Surgery, Heart Catheterization, Heart Catheterization With Stent, Hernia Repair, Orthopedic Surgery Additional Past Surgical History / Comment(s): Neck surgery X2. BACK FUSION. HERNIA X 2 Past Anesthesia/Blood Transfusion Reactions: No Reported Reaction Date of Last Stent Placement:: 08/17/20 Past Psychological History: No Psychological Hx Reported Smoking Status: Current every day smoker Past Alcohol Use History: None Reported Additional Past Alcohol Use History / Comment(s): SMOKES 1 PPD SINCE AGE 17 Past Drug Use History: None Reported - Past Family History Mother Family Medical History: No Reported History Medications and Allergies Home Medications Medication Instructions Recorded Confirmed Type Aspirin [Lynn Aspirin EC] 81 mg PO DAILY 07/12/20 11/16/20 History Clopidogrel [Plavix] 75 mg PO DAILY 11/16/20 11/16/20 History Glimepiride [Amaryl] 2 mg PO BID 11/16/20 11/16/20 History Nitroglycerin Sl Tabs [Nitrostat] 0.4 mg SUBLINGUAL Q5M PRN 11/16/20 11/16/20 History buPROPion XL [Wellbutrin XL] 150 mg PO DAILY 11/16/20 11/16/20 History Atorvastatin [Lipitor] 40 mg PO DAILY 11/17/20 11/17/20 History Metoprolol Succinate (ER) [Toprol 25 mg PO DAILY 11/17/20 11/17/20 History Xl] Allergies Allergy/AdvReac Type Severity Reaction Status Date / Time No Known Allergies Allergy Verified 11/16/20 23:00 Physical Exam Vitals: Vital Signs Temp Pulse Pulse Resp BP BP Pulse Ox 11/17/20 07:09 95 11/17/20 04:00 97.7 F 59 L 20 150/88 98 11/17/20 02:50 98.4 F 62 18 179/87 95 11/17/20 02:17 47 L 18 143/90 95 11/17/20 01:46 48 L 18 158/90 95 11/17/20 00:00 54 L 20 154/111 95 11/16/20 22:56 98.4 F 54 L 22 179/78 97 Intake and Output 11/16/20 11/17/20 11/17/20 22:59 06:59 14:59 Output Total 0 Balance 0 Output: Urine 0 Stool 0 Other: # Voids 0 Weight 124.738 kg 124.738 kg GENERAL: The patient is alert and oriented x3, not in any acute distress. Well developed, well nourished. HEENT: Pupils are round and equally reacting to light. EOMI. No scleral icterus. No conjunctival pallor. Normocephalic, atraumatic. No pharyngeal erythema. No thyromegaly. CARDIOVASCULAR: S1 and S2 present. No murmurs, rubs, or gallops. PULMONARY: Chest is clear to auscultation, no wheezing or crackles. ABDOMEN: Soft, nontender, nondistended, normoactive bowel sounds. No palpable organomegaly. MUSCULOSKELETAL: No joint swelling or deformity. EXTREMITIES: No cyanosis, clubbing, or pedal edema. NEUROLOGICAL: Gross neurological examination did not reveal any focal deficits. SKIN: No rashes. No petechiae Results CBC & Chem 7: 11/16/20 23:09 11/16/20 23:27 Labs: Abnormal Lab Results - Last 24 Hours (Table) 11/16/20 11/16/20 11/17/20 Range/Units 23:27 23:27 02:41 APTT (22.0-30.0) sec Sodium 133 L (137-145) mmol/L Glucose 272 H (74-99) mg/dL POC Glucose (mg/dL) (75-99) mg/dL Troponin I 0.046 H* 1.290 H* (0.000-0.034) ng/mL 11/17/20 11/17/20 11/17/20 Range/Units 05:59 06:20 06:20 APTT 32.6 H (22.0-30.0) sec Sodium (137-145) mmol/L Glucose (74-99) mg/dL POC Glucose (mg/dL) 188 H (75-99) mg/dL Troponin I 5.480 H* (0.000-0.034) ng/mL Thrombosis Risk Factor Assmnt - Choose All That Apply Each Factor Represents 1 point: Acute LA, Obesity (BMI >25) Other Risk Factors: No Other congenital or acquired thrombophilia - If yes, enter type in comment: No Thrombosis Risk Factor Assessment Total Risk Factor Score: 2 Thrombosis Risk Factor Assessment Level: Low Risk Assessment and Plan Assessment: Chest pain, concerning for non-STEMI Diabetes mellitus Hypertension Hyperlipidemia Plan: This is a pleasant 59 years old male who presents with chest pain Continue with aspirin and heparin drip Cardiology consult Who recommended cardiac cath continue with insulin sliding scale Labs and medication were reviewed.. Continue same treatment. Continue with symptomatic treatment. Resume home medication. Monitor lytes and vitals. DVT and GI prophylaxis. Further recommendations depends on the clinical course of the patient DVT prophylaxis: heparin GI Prophylaxis: Pepcid PT/OT: Pending Prognosis is guarded
[2020-11-17] MEDS: INSULIN ASPART (NovoLOG) 100 UNIT/ML VIAL SQ SCH ×3 (12:17→20:13)
--- NOTE | 2020-11-17 13:16 | CC ---
CARDIAC CATHETERIZATION REPORT Mr. Martinez is a 59-year-old male with known history of coronary artery disease who underwent recanalization of his chronically occluded right coronary artery in August of 2020 at [facility]. He presented with acute onset of chest discomfort with evidence of troponin elevation consistent with cqu-BN-bfrtnch-elevation myocardial infarction. In view of that, recommendation was made regarding cardiac catheterization. The procedure as well as its risks and complications were discussed with the patient, who was in full understanding and agreement. PROCEDURE DESCRIPTION: Patient was brought to the landscape and yardwork laborer in a fasting, semi-sedated state after receiving fentanyl and Benadryl and achieving a moderate conscious sedated state. Using Xylocaine anesthesia and Seldinger technique, a 6-Hong Konger sheath was introduced in the right radial artery. Selective right and left coronary angiography was performed using 5-Hong Konger, 3.5 bend right Tirso and 4 bend left Tirso catheters. Multiple views were taken of the arteries, including hemiaxial views. The right Tirso was used to cross the aortic valve and left ventricular end-diastolic pressure was calculated. Following that, catheters were removed and images were reviewed. Of note, the patient received 5000 units of intravenous heparin as well as intra-arterial verapamil. FINDINGS: LEFT MAIN: This is a large-sized vessel bifurcating into left circumflex and left anterior descending artery. Left main coronary artery has no evidence of high-grade stenosis. LEFT ANTERIOR DESCENDING ARTERY: This is a large-sized vessel reaching toward the apex with a wrap around the apex segment, giving rise to a moderately sized diagonal branch in mid segment. The left anterior descending artery in mid segment has diffuse intimal disease of about 30% to 40%. The rest of the vessel has no high-grade stenosis. LEFT CIRCUMFLEX: This is a large nondominant vessel giving rise to two obtuse marginal branches. The second obtuse marginal branch has a 95% to 99% stenosis in a calcified segment. The rest of the vessel has no high-grade stenosis. RIGHT CORONARY ARTERY: This is a large dominant vessel bifurcating distally into PDA and posterolateral segment and branches. The body of the right coronary artery is stented and patent, with no evidence of significant in-stent restenosis. The PLV has a 40% to 50% plaque in the mid segment. The rest of the vessel has no high-grade stenosis. LEFT VENTRICULOGRAM: Left ventriculogram was not performed. HEMODYNAMICS: There was no gradient across the aortic valve. The left ventricular end- diastolic pressure was 18-20 mmHg. CONCLUSION: 1. Critical stenosis involving the first obtuse marginal branch. 2. Patent stented segment in the RCA with moderate disease in the PLV. 3. Mild disease in the LAD. RECOMMENDATIONS: In view of findings and anatomy, I have recommended proceeding with angioplasty and stenting of the left circumflex. The procedure, its risks and complications were discussed with the patient, who is in full understanding and agreement. MMADAM / FACUNDON: [id number] /
--- NOTE | 2020-11-17 13:20 | PTCA ---
PERCUTANEOUSTRANS CORORONARY ANGIOGRAPHY DATE OF PROCEDURE: 11/17/2020 Mr. Martinez is a 59-year-old male with known history of coronary artery disease who presented with hcv-WY-ocylsmu-elevation myocardial infarction, underwent cardiac catheterization and was found to have critical stenosis involving the second obtuse marginal branch. In view of that, recommendation was made regarding angioplasty and stenting. The procedure as well as its risks and complications were discussed with the patient, who was in full understanding and agreement. PROCEDURE DESCRIPTION: A 6-Uzbek EBU 3.75 guiding catheter was introduced into the system. After cannulating the left main, a 0.014 balanced medium weight J-wire was advanced across the lesion. This was positioned in the distal obtuse marginal branch. Subsequently a 2.5 x 15 mm NC Trek balloon was advanced, and two inflations at 8 atmospheres were done. Following that, the balloon was removed and a 3.0 x 28 mm Xience Skypoint stent was advanced, deployed and post-dilated at 16 atmospheres. Following that and after removing the balloon, an intravascular ultrasound catheter [place] was introduced and images were obtained. Following that, a 3.25 x 15 mm NC Trek balloon was advanced and inflations to a maximum of 12 atmospheres were done. After the last inflation, after appropriate wait, the balloon and the guidewire were withdrawn back into the guiding catheter. Images were obtained and repeated. Those images revealed stable successful stenting. At that point, the guiding catheter, the balloon and the guidewire were removed. The sheath was removed. Hemostasis was obtained with deployment of a TR band. There was no complication. The patient was returned to his room in stable condition. Of note, the patient received 8000 units of intravenous heparin and was continued on clopidogrel. He had chest discomfort that resolved at the end of the procedure but no significant EKG changes. RESULTS: Successful stenting of the first obtuse marginal branch with reduction of stenosis from 95% to 0% with IVUS imaging. RECOMMENDATIONS: Patient will be continued on aspirin, Plavix and statin. The importance of dual antiplatelet treatment was discussed with the patient and his family, and they are in full understanding and agreement. Duration of sedation was 52 minutes. MMODL / FACUNDON: [id number] / CAITLIN
--- NOTE | 2020-11-17 13:27 | LTR ---
November 17, 2020 To: Dr. Prabhakar Regarding: Hemanth Martinez (62) Dear Dr. Prabhakar, I had the pleasure of performing cardiac catheterization and coronary angioplasty and stenting on Mr. Martinez at [facility] on November 17, and a full copy of the procedure notes will be forwarded to you. In brief, he was found to have patent stented segment in the RCA that was done in August at [facility], but he had a significant disease involving the second obtuse marginal branch and underwent successful stenting of that vessel. I am hopeful that this procedure will stabilize his status. Thank you again for allowing me to participate in this patient's care. Please feel free to call with any questions. Sincerely, Stacey Faria M.D. FAUSTINA / EMANI: [id number] /
[2020-11-17 16:33] LABS: Glucose,Whole Blood 256 mg/dL (75-99)
--- NOTE | 2020-11-17 17:36 | ECHOF ---
Referral Reason:elevTrop MEASUREMENTS -------- HEIGHT: 188.0 cm WEIGHT: 124.7 kg BP: 150/88 RVIDd: 3.7 cm (< 3.3) IVSd: 1.5 cm (0.6 - 1.1) LVIDd: 5.5 cm (3.9 - 5.3) LVPWd: 1.2 cm (0.6 - 1.1) IVSs: 2.2 cm LVIDs: 3.1 cm LVPWs: 2.0 cm LA Diam: 3.7 cm (2.7 - 3.8) LAESV Index (A-L): 18.90 ml/m Ao Diam: 4.4 cm (2.0 - 3.7) AV Cusp: 1.6 cm (1.5 - 2.6) MV EXCURSION: 16.790 mm (> 18.000) MV EF SLOPE: 88 mm/s (70 - 150) EPSS: 0.4 cm MV E Phillip: 0.91 m/s MV DecT: 270 ms MV A Phillip: 0.32 m/s MV E/A Ratio: 2.86 RAP: 5.00 mmHg RVSP: 31.23 mmHg FINDINGS -------- Resting bradycardia (HR<60bpm). This was a technically adequate study. The left ventricular size is normal. There is moderate concentric left ventricular hypertrophy. O verall left ventricular systolic function is low-normal with, an EF between 50 - 55 %. The right ventricle is mild to moderately enlarged. Normal LA size by volume 22+/-6 ml/m2. The right atrium is normal in size. Interatrial and interventricular septum intact. Trace to mild aortic regurgitation. There is trace mitral regurgitation. Mild tricuspid regurgitation present. Right ventricular systolic pressure is normal at < 35 mmHg. The pulmonic valve was not well visualized. 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 Ascending AO up to 47 mm Normal inferior vena cava with normal inspiratory collapse consistent with estimated right atrial pre ssure of 5 mmHg. There is no pericardial effusion. CONCLUSIONS -------- 1. The left ventricular size is normal. 2. There is moderate concentric left ventricular hypertrophy. 3. Overall left ventricular systolic function is low-normal with, an EF between 50 - 55 %. 4. The right ventricle is mild to moderately enlarged. 5. Trace to mild aortic regurgitation. 6. There is trace mitral regurgitation. 7. Mild tricuspid regurgitation present. 8. 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 9. Ascending AO up to 47 mm 10. There is no pericardial effusion. MEDICAL INSTRUMENT CABLE FABRICATOR: Janessa Escobar RDCS
[2020-11-17 19:57] LABS: Glucose,Whole Blood 176 mg/dL (75-99)
[2020-11-18] MEDS: SODIUM CHLORIDE 0.9% 1,000 ML IV SCH (03:31)
[2020-11-18 05:52] LABS: Glucose,Whole Blood 158 mg/dL (75-99)
[2020-11-18] MEDS: INSULIN ASPART (NovoLOG) 100 UNIT/ML VIAL SQ SCH ×2 (06:32→12:23)
[2020-11-18] MEDS ORDERED: HEPARIN SODIUM,PORCINE 2,500 UNIT in SODIUM CHLORIDE 0.9% 250 ML IRRIGATION PRN (07:00)
[2020-11-18] MEDS ORDERED: HEPARIN SODIUM,PORCINE 10,000 UNIT in SODIUM CHLORIDE 0.9% 1,000 ML IRRIGATION PRN (07:00)
[2020-11-18 07:38] LABS: Blood Urea Nitrogen 14 mg/dL (9-20); Calcium 8.9 mg/dL (8.4-10.2); Potassium 4.3 mmol/L (3.5-5.1); Sodium 135 mmol/L (137-145)
[2020-11-18 08:23] LABS: African American GFR (CKD) >90 (>60 ml/min/1.73 sqM); Anion Gap 10 mmol/L; Carbon Dioxide 23 mmol/L (22-30); Chloride 102 mmol/L (98-107); Glucose 157 mg/dL (74-99); Non-African American GFR(CKD) >90 (>60 ml/min/1.73 sqM)
[2020-11-18] MEDS ORDERED: ASPIRIN 81 MG PO SCH (09:00)
[2020-11-18] MEDS ORDERED: ASPIRIN 325 MG TAB PO SCH (09:00)
[2020-11-18] MEDS ORDERED: CLOPIDOGREL 75 MG TAB PO SCH (09:00)
[2020-11-18] MEDS: FAMOTIDINE 20 MG/2 ML VIAL IV SCH (09:08)
[2020-11-18] MEDS: ATORVASTATIN 80 MG TAB PO SCH (09:08)
[2020-11-18] MEDS: METOPROLOL SUCCINATE (ER) 25 MG TAB.ER.24H PO SCH (09:08)
[2020-11-18] MEDS ORDERED: LOSARTAN 25 MG TAB PO SCH (10:15)
[2020-11-18 11:24] LABS: Chol/HDL Ratio 5.94 Ratio; HDL Cholesterol 27.8 mg/dL (40.00-60.00); LDL Cholesterol,Calculated 82.8 mg/dL (0.0-131.0); VLDL Calculation 54.4 mg/dL (5.00-40.00)
[2020-11-18 11:38] LABS: Glucose,Whole Blood 203 mg/dL (75-99)
--- NOTE | 2020-11-18 11:38 | P.PN ---
Subjective This is a pleasant 59-year-old male past medical history significant for hypertension, hyperlipidemia, type 2 diabetes, coronary artery disease previous PCI to RCA at [facility], chronically occluded RCA, chronic nicotine dependence. He follows in the office with Dr. Faria. We have been asked to see in consultation for chest pain. EKG revealed sinus mechanism first degree AV block, mild st depressions in inferior and V5 and V6. Troponin 0.04-->1.2-->5.4. Patient underwent cardiac catheterization with Dr. Faria 11/17/20 which revealed mid LAD 30%40% stenosis, second obtuse marginal branch 9599 percent stenosis, PLV has 4050 percent stenosis, patent stent in RCA. Patient underwent successful stenting of the first obtuse marginal branch. Echocardiogram revealed an EF of 5055 percent, aortic root dilated 4.4 cm Patient seen and examined at bedside, no acute distress. Sitting up in the bedside chair. He denies any chest pain, shortness of breath. He is overall feeling well. Blood pressure 146/87, heart rate 42, afebrile, maintaining oxygen saturations on room air. Telemetry reviewed patient maintained sinus mechanism heart rate 40s60s. Laboratory data reviewed sodium 135, potassium 4.3, BUN 14, serum creatinine 0.7, triglycerides 272, cholesterol 165, LDL 82, HDL 27. Patient currently maintained on aspirin milligrams daily, atorvastatin 80 mg daily Plavix 75 mg daily, metoprolol succinate 25 mg daily. PHYSICAL EXAMINATION CONSTITUTIONAL: No apparent distress. HEENT: Neck Supple. No JVD CHEST EXAMINATION: Lungs are clear to auscultation. No chest wall tenderness is noted on palpation or with deep breathing. HEART EXAMINATION: Regular rate and rhythm. S1, S2 heard. No murmurs, gallops or rub. ABDOMEN: Soft, nontender. Positive bowel sounds. EXTREMITIES: 2+ peripheral pulses, no lower extremity edema and no calf tenderness. SKIN: right radial cath site clean dry intact, no hematoma NEUROLOGIC EXAMINATION: Patient is awake, alert and oriented x3. ASSESSMENT NSTEMI s/p PCI to OM1 branch 11/17/20 Hypertension Hyperlipidemia Type 2 diabetes Coronary artery disease- PCI RCA at [facility], chronically occluded RCA, moderate disease in left circumflex and LAD on cath in July 2020 Chronic nicotine dependence PLAN -Start Losartan 25mg daily -Patient states he has side effects of muscle soreness due to atorvastatin. Will switch to Crestor -Continue aspirin and Plavix. Patient states he has enough Plavix at home -Continue metoprolol succinate -From cardiology perspective, patient stable to be discharged home. Follow-up with Dr. Faria in one week. Nurse Practitioner note has been reviewed, I agree with a documented findings and plan of care. Patient was seen and examined. Objective - Vital Signs Vital signs: Vital Signs Temp 98.3 F 11/17/20 20:00 Pulse 42 L 11/18/20 04:00 Resp 18 11/18/20 04:00 BP 146/87 11/18/20 04:00 Pulse Ox 94 L 11/18/20 04:00 Intake & Output 11/17/20 11/18/20 11/18/20 18:59 06:59 18:59 Intake Total 435.344 0 Output Total 158 Balance 435.344 -158 0 Weight 123.2 kg Intake: IV 175 Intake, IV Titration 80.344 Amount Heparin Sod,Pork in 0.45% 80.344 NaCl 25,000 unit In 0.45 % NaCl 1 250ml.bag @ 8. 0168 UNITS/KG/HR 10 mls/ hr IV .Q24H PUNEET Rx#: [id number] Oral 180 0 Output: Urine 158 Other: Voiding Method Toilet # Voids 2 1 - Labs CBC & Chem 7: 11/16/20 23:09 11/18/20 06:20 Labs: Abnormal Lab Results - Last 24 Hours (Table) 11/17/20 11/17/20 11/17/20 Range/Units 11:55 16:22 19:56 Sodium (137-145) mmol/L Glucose (74-99) mg/dL POC Glucose (mg/dL) 166 H 256 H 176 H (75-99) mg/dL 11/18/20 11/18/20 Range/Units 05:51 06:20 Sodium 135 L (137-145) mmol/L Glucose 157 H (74-99) mg/dL POC Glucose (mg/dL) 158 H (75-99) mg/dL
[2020-11-18 11:53] VITALS: PULSE 44; TEMP 98.4
[2020-11-18 11:59] VITALS: BP 153/77; RESP 18
[2020-11-18 12:08] VITALS: BMI 34.8
--- NOTE | 2020-11-18 20:31 | P.DS ---
Providers Date of admission: 11/17/20 01:12 Attending physician: Jimbo Loving Consults: 11/17/20 01:12 Consult Physician Urgent Consulting Provider: Stacey Faria Consult Reason/Comments: [email or web address] Do you want consulting provider notified?: Yes 11/17/20 11:53 Consult Physician Routine Consulting Provider: [facility] Consult Reason/Comments: Post Interventional patient Do you want consulting provider notified?: Already Contacted Primary care physician: Aki Dunn [facility] Course: Diagnoses: None STEMI, status post cardiac cath and PCI to the second obtuse branch Diabetes mellitus Hypertension Hyperlipidemia This is a pleasant 59 years old male with past medical history of Diabetes Mellitus, Hyperlipidemia, Hypertension Patient presents because of chest pain started 9:30 in the morning, he has elevated troponin and he was started on heparin drip for non-STEMI. Coater Associate of the patient for cardiac cath and stent placement of the second obtuse branch while his old stent was found to be patent in the RCA. Postprocedure patient's symptoms significantly improved and patient is back to baseline. Chest pain no dyspnea, no change in urine or bowel habits. No fever. Patient was continued on aspirin and Plavix and importance of dual antiplatelet therapy at her is is explained for him extensively Patient was eager to go home today Patient was cleared for discharge by securities underwriter Problems and management plan were discussed with the patient and he verbalized understanding and acceptance Patient was found stable and can be discharged home however he needs follow-up as an outpatient. Patient was instructed to follow up with PCP Dr. Prabhakar within one week and patient agrees Patient was instructed to follow up with Dr. Faria and he agrees with the appointments made for him on 11/23 Physical exam Gen: patient is a AAOx3, no distress CVS: S1-S2, RRR, no murmur Lungs: B/L CTA, no wheezing Abdomen: soft, no distention, no tenderness, positive bowel sounds Extremity: no leg edema or induration Time spent more than 35 minutes Patient Condition at Discharge: Fair Plan - Discharge Summary Discharge Rx Participant: No New Discharge Prescriptions: New Losartan [Cozaar] 25 mg PO DAILY 30 Days #30 tab Rosuvastatin [Crestor] 20 mg PO DAILY 30 Days #30 tablet Continue Glimepiride [Amaryl] 2 mg PO BID Clopidogrel [Plavix] 75 mg PO DAILY Aspirin [Dillon Aspirin EC] 81 mg PO DAILY Nitroglycerin Sl Tabs [Nitrostat] 0.4 mg SUBLINGUAL Q5M PRN PRN Reason: Chest Pain buPROPion XL [Wellbutrin XL] 150 mg PO DAILY Metoprolol Succinate (ER) [Toprol XL] 25 mg PO DAILY Discontinued Atorvastatin [Lipitor] 40 mg PO DAILY Discharge Medication List Aspirin [Dillon Aspirin EC] 81 mg PO DAILY 07/12/20 [History] Clopidogrel [Plavix] 75 mg PO DAILY 11/16/20 [History] Glimepiride [Amaryl] 2 mg PO BID 11/16/20 [History] Nitroglycerin Sl Tabs [Nitrostat] 0.4 mg SUBLINGUAL Q5M PRN 11/16/20 [History] buPROPion XL [Wellbutrin XL] 150 mg PO DAILY 11/16/20 [History] Metoprolol Succinate (ER) [Toprol XL] 25 mg PO DAILY 11/17/20 [History] Losartan [Cozaar] 25 mg PO DAILY 30 Days #30 tab 11/18/20 [Rx] Rosuvastatin [Crestor] 20 mg PO DAILY 30 Days #30 tablet 11/18/20 [Rx] Follow up Appointment(s)/Referral(s): Stacey Faria MD [STAFF PHYSICIAN] - 11/23/20 3:15 pm Shaun Prabhakar MD [Primary Care Provider] - 11/24/20 11:10 am Patient Instructions/Handouts: *Surgery [facility] - After Heart Catheterization - [employer] Instructions, Heart Healthy Diet (DC), Return to Work Instructions (DC), Return to Work Instructions (GEN) Activity/Diet/Wound Care/Special Instructions: heart healthy diet activity is restricted till you see your doctor Cardiology Instructions After Cardiac Catheterization with Stent Placement: 1. Aspirin as anti-platelet therapy - Aspirin lessens the chance of heart attack and stroke. It helps prevent blood clots from forming, allowing the blood to flow more easily. Each day, you will take one 81 mg (non-enteric coated) tablet daily. You will be taking aspirin as a lifelong medication. Do not stop unless instructed by your doctor. 2. Anti-platelet Therapy. -In addition to aspirin, you will take ONE of the following anti-platelet medications daily. This will help prevent a clot from forming in your stent: Plavix (clopidogrel) -You will need to take your anti-platelet medicine every day for 12 months -Please consult your heart doctor before you stop this medicine. -They may want you to continue for a longer period of time. 3. Statins -A statin medication lowers cholesterol levels in the blood. This helps slow the progression of heart disease. - Please take your statin medication as prescribed by your doctor. -You may be taking one of the following statins: Crestor Other Medications: -Angiotensin II Receptor Joanna- (Losartan) can help your heart work better after a heart attack and decrease the amount of damage from a heart attack. Also helps prevent kidney injury due to your diabetes -Beta joanna. Is a medication that protects your heart from stress and can prevent future heart attacks. It can slow your heart rate. It can take weeks for your body to get used to a beta joanna. The dose may need to be changed a few times as your body adjusts Do not stop taking these medicines without talking to your doctor. -Take all other medicines as directed by your doctor. Do not take any extra aspirin or ibuprofen. They can increase your risk of bleeding. Many [id number] drugs contain aspirin. If you are unsure about what the drug contains, check with your pharmacist before taking it. -For mild discomfort, you may take plain Tylenol (acetaminophen). Follow dose directions, but do not take more than 4,000 mg of acetaminophen in 24 hours. Contact your doctor right away or go to the nearest hospital Emergency Room if you have: -Severe angina or chest pain. (This may be a sign of a problem with your stent.) -Excessive bruising, blood in urine/stool or black tarry stools. Healthy LifeStyle It is important to keep a heart healthy lifestyle. This can improve your long- term health and decrease your risk for heart attacks. -Managing your blood cholesterol, blood pressure, weight, and stress. -Diabetes control- Recommend follow up with an Drag Out Worker -The importance of regular exercise. -Heart Healthy Diet- Limit meats, switch to seafood as much as possible. Limit processed foods (foods that come in a box, can etc). Concentrate on vegetables, fruits, whole grains, low-fat dairy products, nuts, legumes. Discharge Disposition: HOME SELF-CARE
== END 2020-11-18 12:47 | disposition home or self-care (01) | DRG 247 ==
LOC: EC 22:53 → 3SCARD 11-17 01:12
PROVIDERS: ADMIT Hospitalist; ATTEND Hospitalist
PROC: 027034Z Dilation of Coronary Artery, One Artery with Drug-eluting Intraluminal Device, Percutaneous Approach (ICD-10-PCS; principal; 2020-11-17 11:45)
PROC: 4A023N7 Measurement of Cardiac Sampling and Pressure, Left Heart, Percutaneous Approach (ICD-10-PCS; 2020-11-17 11:45)
PROC: B2111ZZ Fluoroscopy of Multiple Coronary Arteries using Low Osmolar Contrast (ICD-10-PCS; 2020-11-17 11:45)
DX: I21.3 ST elevation (STEMI) myocardial infarction of unspecified site (principal); Z20.822 Contact with and (suspected) exposure to COVID-19; I25.110 Atherosclerotic heart disease of native coronary artery with unstable angina pectoris; E11.9 Type 2 diabetes mellitus without complications; E78.5 Hyperlipidemia, unspecified; F17.210 Nicotine dependence, cigarettes, uncomplicated; I10 Essential (primary) hypertension; I25.82 Chronic total occlusion of coronary artery; I44.0 Atrioventricular block, first degree; Z79.02 Long term (current) use of antithrombotics/antiplatelets; Z98.1 Arthrodesis status; Z95.5 Presence of coronary angioplasty implant and graft; Z79.899 Other long term (current) drug therapy; Z79.84 Long term (current) use of oral hypoglycemic drugs; Z79.82 Long term (current) use of aspirin; R00.1 Bradycardia, unspecified
CPT/HCPCS: 36415; 71046; 80048; 80053; 80061; 83690; 83735; 83880; 84484; 85025; 85610; 85730; 87635; 92978; 93005; 93306; 93458; 94760; 96365; 96375; 99291

== ENCOUNTER → 2021-02-13 | Outpatient (CLI) | payer OTHER ==
[2021-02-13 20:23] LABS: ALT 19 U/L (10-49); AST 17 U/L (14-35); African American GFR (CKD) 112.9 (60.0-200.0); Albumin 4.4 g/dL (3.8-4.9); Albumin/Globulin Ratio 1.95 (1.60-3.17); Alkaline Phosphatase 75 U/L (41-126); BUN/Creat Ratio 12.64 Ratio (12.00-20.00); Blood Urea Nitrogen 10.2 mg/dL (9.0-27.0); Calcium 8.9 mg/dL (8.7-10.3); Carbon Dioxide 22.3 mmol/L (20.0-27.5); Chloride 102 mmol/L (96-109); Chol/HDL Ratio 6.06 Ratio; Globulin 2.2 g/dL (1.6-3.3); Glucose 143 mg/dL (70-110); LDL Cholesterol,Calculated 101.2 mg/dL (0.0-131.0); Non-African American GFR(CKD) 97.4 (60.0-200.0); Potassium 4.3 mmol/L (3.5-5.5); Sodium 136 mmol/L (135-145); Total Protein 6.6 g/dL (6.2-8.2)
== END | disposition home or self-care (01) ==
LOC: LABWHC1 12:41
PROVIDERS: ATTEND Internal Medicine Interventional Cardiology
DX: E78.2 Mixed hyperlipidemia (principal)
CPT/HCPCS: 36415; 80053; 80061

== ENCOUNTER → 2021-05-05 | Outpatient (CLI) | payer OTHER ==
[2021-05-05 22:38] LABS: ALT 30 U/L (10-49); AST 26 U/L (14-35); African American GFR (CKD) 103.2 (60.0-200.0); Albumin 4.5 g/dL (3.8-4.9); Alkaline Phosphatase 72 U/L (41-126); BUN/Creat Ratio 11.24 Ratio (12.00-20.00); Blood Urea Nitrogen 10.5 mg/dL (9.0-27.0); Calcium 8.7 mg/dL (8.7-10.3); Carbon Dioxide 25.2 mmol/L (20.0-27.5); Chloride 99 mmol/L (96-109); Chol/HDL Ratio 4.83 Ratio; Glucose 106 mg/dL (70-110); LDL Cholesterol,Calculated 76.9 mg/dL (0.0-131.0); Non-African American GFR(CKD) 89.1 (60.0-200.0); Potassium 4.5 mmol/L (3.5-5.5); Sodium 136 mmol/L (135-145); Total Protein 6.5 g/dL (6.2-8.2)
== END | disposition home or self-care (01) ==
LOC: LABWHC1 13:57
PROVIDERS: ATTEND Internal Medicine Interventional Cardiology
DX: E78.2 Mixed hyperlipidemia (principal)
CPT/HCPCS: 36415; 80053; 80061; 83036

== ENCOUNTER → 2021-10-10 | Outpatient (CLI) | payer OTHER ==
--- NOTE | 2021-10-10 11:00 | XR ---
EXAMINATION TYPE: XR knee limited bilateral DATE OF EXAM: 10/10/2021 COMPARISON: NONE HISTORY: knee pain TECHNIQUE: Two views are submitted of each knee. FINDINGS: Right knee: Moderate-sized suprapatellar bursal fluid collection. There is minimal hypertrophic spurr ing of the patellofemoral joint. Very mild narrowing of the medial compartment of the knee joint. Left knee: Mild narrowing of the medial compartment and patellofemoral compartment space. No erosive changes or acute fracture. Utilization normal. IMPRESSION: 1. Moderate sized suprapatellar bursal fluid collection on the right with mild osteoarthritic changes noted bilaterally. Osteoarthritic changes are greater on the left.
== END | disposition home or self-care (01) ==
LOC: RADXRMAIN 09:41
PROVIDERS: ATTEND Internal Medicine
DX: M25.561 Pain in right knee (principal); M25.562 Pain in left knee

== ENCOUNTER → 2021-12-18 | Outpatient (CLI) | payer OTHER ==
[2021-12-18 12:01] LABS: Partial Thromboplastin Time 25.4 sec (22.0-30.0); Prothrombin Time 10.9 sec (9.0-12.0)
[2021-12-18 15:34] LABS: Basophils # (A) 0.04 X 10*3/uL (0.00-0.10); Basophils % (A) 0.5 %; Eosinophils % (A) 1.3 %; HCT 45.4 % (39.6-50.0); HGB 15.7 g/dL (13.0-17.0); Immature Grans, Automated 0.4 %; Lymphocytes # (A) 2.16 X 10*3/uL (0.90-5.00); Lymphocytes % (A) 27.9 %; MCH 33.5 pg (27.0-32.0); MCHC 34.6 g/dL (32.0-37.0); MCV 96.8 fL (80.0-97.0); NRBC Per 100 WBC 0 /100 WBCS (0.0-0.0); Neutrophils # (A) 4.71 X 10*3/uL (1.80-7.70); Neutrophils % (A) 60.9 %; Platelet Count 163 X 10*3/uL (140-440); RBC 4.69 X 10*6/uL (4.40-5.60); RDW 13.5 % (11.5-14.5); WBC 7.74 X 10*3/uL (4.50-10.00)
[2021-12-18 16:14] LABS: African American GFR (CKD) 107.8 (60.0-200.0); Albumin 4.5 g/dL (3.8-4.9); Albumin/Globulin Ratio 2.02 (1.60-3.17); Anion Gap 10.4 mmol/L (10.00-18.00); BUN/Creat Ratio 10.37 Ratio (12.00-20.00); Blood Urea Nitrogen 9.2 mg/dL (9.0-27.0); Calcium 9.2 mg/dL (8.7-10.3); Carbon Dioxide 25.1 mmol/L (20.0-27.5); Globulin 2.2 g/dL (1.6-3.3); Potassium 4.8 mmol/L (3.5-5.5); Total Bilirubin 0.6 mg/dL (0.30-1.20); Total Protein 6.8 g/dL (6.2-8.2)
== END | disposition home or self-care (01) ==
LOC: LABWHC1 10:28
PROVIDERS: ATTEND Internal Medicine
DX: Z01.812 Encounter for preprocedural laboratory examination (principal); I25.10 Atherosclerotic heart disease of native coronary artery without angina pectoris; I10 Essential (primary) hypertension; E11.9 Type 2 diabetes mellitus without complications
CPT/HCPCS: 36415; 80053; 83036; 85025; 85610; 85730

== ENCOUNTER → 2022-02-05 | Outpatient (CLI) | payer OTHER ==
[2022-02-05 10:12] LABS: African American GFR (CKD) >90 (>60 ml/min/1.73 sqM); Blood Urea Nitrogen 24 mg/dL (9-20); Non-African American GFR(CKD) >90 (>60 ml/min/1.73 sqM)
--- NOTE | 2022-02-05 12:26 | CT ---
EXAMINATION TYPE: CT angio chest DATE OF EXAM: 02/05/2022 COMPARISON: 11/16/2020 HISTORY: 61-year-old male I71.2, THORACIC AORTIC ANEURYSM without rupture TECHNIQUE: Contiguous axial scanning of the thoracic spine performed without and with IV Contrast, pa tient injected with 100 mL of Isovue 370. Coronal/sagittal reconstructions performed. 3-D reconstruct ions generated on a dedicated independent workstation. CT DLP: 1678.5 mGycm Automated exposure control for dose reduction was used. FINDINGS: Heart normal size without pericardial effusion. Three-vessel coronary artery calcifications are prese nt and are a marker for coronary artery disease. Aneurysm aortic root at 4.6 cm. Aneurysm ascending aorta at 4.8 cm. Aneurysm proximal arch at 4.3 cm. Conventional vessel branching anatomy. Aneurysm upper descending thoracic aorta 3.9 cm. Aneurysmal mid descending thoracic aorta 3.2 cm. Aneurysm aorta at the thoracoabdominal junction and 3.2 cm. No evidence for aortic dissection. Initial noncontrast images show no evidence for acute intracranial hematoma. No thoracic lymphadenopathy by CT size criteria. Mildly enlarged caliber to the main right and left pulmonary arteries measuring up to 3.1 cm may refl ect underlying pulmonary hypertension. Mild emphysematous change. No consolidation or pleural effusion. Mild diffuse bronchial wall thickeni ng. Visualized upper abdomen shows a concerning cortical lesion medial upper pole right kidney measuring 2.9 cm. This shows heterogeneous enhancement and renal cell carcinoma should be excluded. Bones: Scattered mild degenerative disc disease. ACDF noted. Moderate degenerative change right shoulder and moderate to severe at the left shoulder. IMPRESSION: 1. INCIDENTAL SUSPICIOUS 2.9 CM CORTICAL LESION UPPER POLE RIGHT KIDNEY. FINDINGS CONCERNING FOR RCC. RECOMMEND UROLOGY REFERRAL FOR FURTHER EVALUATION AN MANAGEMENT. 2. DIFFUSELY ANEURYSMAL THORACIC AND VISUALIZED UPPER ABDOMINAL AORTA. AORTIC ROOT 4.6 CM AND ASCENDI NG AORTA 4.8 CM. DESCENDING THORACIC AORTA MEASURING UP TO 3.9 CM. 3. COPD WITH MILD EMPHYSEMA. CORRELATE FOR UNDERLYING PULMONARY ARTERIAL HYPERTENSION. 4. CAD WITH THREE-VESSEL CORONARY ARTERY CALCIFICATIONS.
== END | disposition home or self-care (01) ==
LOC: RADCTMAIN 09:24
PROVIDERS: ATTEND Internal Medicine Interventional Cardiology
DX: I71.20 Thoracic aortic aneurysm, without rupture, unspecified (principal); J43.9 Emphysema, unspecified; I25.10 Atherosclerotic heart disease of native coronary artery without angina pectoris; I27.0 Primary pulmonary hypertension
CPT/HCPCS: 82565; 84520; 71275; 36415; Q9967

== ENCOUNTER → 2023-05-24 | Outpatient (CLI) | payer OTHER ==
[2023-05-24 11:02] LABS: African American GFR (CKD) >90 (>60 ml/min/1.73 sqM); Blood Urea Nitrogen 16 mg/dL (9-20); Non-African American GFR(CKD) >90 (>60 ml/min/1.73 sqM)
--- NOTE | 2023-05-24 12:11 | CT ---
CTA CHEST EXAMINATION TYPE: CT angio chest DATE OF EXAM: 05/24/2023 INDICATION: f/u aneurysm CT DLP: 1207 mGycm, Automated exposure control for dose reduction was used. CONTRAST: Patient injected with 100 mL of Isovue 370. COMPARISON: 02/05/2022 TECHNIQUE: CT of the chest is performed on a spiral scan at 2 mm thick sections. Study is performed with intravenous contrast timed for evaluation for aortic aneurysm. This will limit additional porti ons of the evaluation. 3-D MIP images reconstructed by the technologist are reviewed on the computer in the coronal and sagittal planes. FINDINGS: No persistent filling defects are evident to suggest an acute pulmonary embolism. No mediastinal or hilar adenopathy enlarged by CT criteria is evident. The ascending aorta diameter at the level of the main pulmonary artery is 5.0 cm. The main pulmonary artery diameter at the bifurcation is 3.4 cm. Coronary artery calcification is present. No aortic d issection is evident. Descending thoracic aorta is nonaneurysmal. Celiac axis and superior mesenteric arteries appear normal. Renal arteries appear normal. Lung windows are clear. Limited CT sections were through the upper abdomen. Upper abdomen appears unremarkable. IMPRESSION: 1. Ascending thoracic aortic aneurysm is stable measuring 5.0 cm.
== END | disposition home or self-care (01) ==
LOC: RADCTMAIN 10:18
PROVIDERS: ATTEND Internal Medicine Interventional Cardiology
DX: I71.21 Aneurysm of the ascending aorta, without rupture (principal)
CPT/HCPCS: 82565; 84520; 71275; 36415; Q9967